=== PATIENT | female | born 1955 | race Caucasian/White ===

== ENCOUNTER 2017-01-04 07:46 | Emergency (ER) | payer OTHER ==
[~2017-01-04] VITALS: Ht 152.4 cm; Wt 67.1 kg
[~2017-01-04 07:46] MED LIST: ALAVERT10 MG PO; ANTIVERT25 MG PO; ATARAX,VISTARIL25 MG PO; Aspirin E.C. PO; BENAZEPRIL HCL40 MG PO; LEVOTHROID PO; LEVOTHYROXINE50 MCG PO; LISINOPRIL2.5 MG PO; Levothroid,Synthroid PO; Lipitor PO; Lotensin PO; MIRTAZAPINE30 MG PO; NAPROSYN500 MG PO; PERCOCET 5/31 TABLET PO; PRAVACHOL40 MG PO; PRAVASTATIN; PRAVASTATIN SOD80 MG PO; ROBAXIN500 MG PO; SYNTHROID100 MCG PO; SYNTHROID75 MCG PO; TYLENOL PM1 CAPLET PO; ULTRAM50 MG PO; ZOLPIDEM TARTRAT5 MG PO
[2017-01-04 08:11] LABS: BASOPHIL COUNT 0.1 K/uL (0-0.1); EOSINOPHIL COUNT 0.3 K/uL (0-0.3); HEMATOCRIT 44.5 % (36.0-46.0); IMMATURE GRANULOCYTE (%) 0.5 % (0.0-0.7); INSTRUMENT ABS NEUTROPHIL CT 2.2 K/uL; MCHC 32.8 G/DL (30.0-36.0); MCV 88.3 FL (83-99); MEAN PLAT.VOLUME 9.6 uM^3 (9.5-12.4); MONOCYTE (%) 9.5 % (3-12); MONOCYTE COUNT 0.4 K/uL (0-0.8); NEUTROPHIL (%) 55.9 % (45-76); NEUTROPHIL COUNT 2.2 K/uL (1.8-6.4); PLATELET COUNT 334 K/uL (156-360); RBC DIS.WIDTH-CV 13.2 % (11.8-14.6); RED BLOOD COUNT 5.04 M/uL (3.80-5.20)
[2017-01-04 08:19] LABS: CHLORIDE 106 mEq/L (99-109); POTASSIUM 3.8 mEq/L (3.7-5.4); SODIUM 142 mEq/L (136-147)
[2017-01-04 08:21] LABS: GLUCOSE 91 mg/dL (70-99)
[2017-01-04 08:22] LABS: ANION GAP 12 MEQ/L (2-14)
[2017-01-04 08:25] LABS: GFR ESTIMATE (CALCULATED) > 59 mL/min/
[2017-01-04 08:26] LABS: UREA NITROGEN (BUN) 14 mg/dL (9-23)
[2017-01-04] MEDS ORDERED: ANTIVERT25 MG PO (09:33)
[2017-01-04 10:20] VITALS: BP 149/83
== END 2017-01-04 10:38 | disposition home or self-care (01) ==
LOC: EME 07:46
PROVIDERS: Emergency Medicine
DX: R42 Dizziness and giddiness (principal); E78.5 Hyperlipidemia, unspecified; I10 Essential (primary) hypertension; E03.9 Hypothyroidism, unspecified
CPT/HCPCS: 80048; 85025; 93005; 99281; 99284

== ENCOUNTER 2017-05-25 06:22 | Emergency (ER) | payer OTHER ==
[~2017-05-25] VITALS: Ht 152.4 cm; Wt 70.3 kg
[2017-05-25] MEDS ORDERED: KEFLEX500 MG PO (08:50)
[2017-05-25] MEDS ORDERED: NAPROXEN500 MG PO (08:51)
[2017-05-25 09:46] VITALS: BP 154/89
== END 2017-05-25 09:47 | disposition home or self-care (01) ==
LOC: EME 06:22
DX: S90.512D Abrasion, left ankle, subsequent encounter (principal); W01.0XXD Fall on same level from slipping, tripping and stumbling without subsequent striking against object, subsequent encounter; E03.9 Hypothyroidism, unspecified
CPT/HCPCS: 73610; 76882; 99281; 99284; J1885

== ENCOUNTER 2018-01-05 10:34 | Emergency (ER) | payer OTHER ==
[~2018-01-05] VITALS: Ht 152.4 cm; Wt 72.2 kg
[~2018-01-05 10:34] MED LIST changes: +KEFLEX500 MG PO; +NAPROXEN500 MG PO
[2018-01-05] MEDS ORDERED: FLEXERIL10 MG PO (11:38)
[2018-01-05] MEDS ORDERED: NAPROSYN500 MG PO (11:38)
[2018-01-05 12:00] VITALS: BP 145/76
== END 2018-01-05 12:21 | disposition home or self-care (01) ==
LOC: EME 10:34
DX: S16.1XXA Strain of muscle, fascia and tendon at neck level, initial encounter (principal); S39.012A Strain of muscle, fascia and tendon of lower back, initial encounter; V49.50XA Passenger injured in collision with unspecified motor vehicles in traffic accident, initial encounter; Y92.410 Unspecified street and highway as the place of occurrence of the external cause; Z88.5 Allergy status to narcotic agent
CPT/HCPCS: 99281; 99284